=== PATIENT | female | born 1980 | race American Indian/Alaskan Native ===

== ENCOUNTER 2017-01-25 09:08 | Outpatient (CLI) | payer OTHER ==
--- NOTE | 2017-01-25 10:35 | Fluoroscopy Report ---
UPPER GI SERIES HISTORY: Gastroesophageal reflux disease, abdominal pain. COMPARISON: None at this facility. FINDINGS: [employer] Bilingual film of the abdomen demonstrates a LAP band device in the left upper quadrant. The position of the lap band appears abnormal. Deglutition is normal. No aspiration. The esophagus is dilated and demonstrates poor emptying throughout this exam. Occasional esophageal spasm was witnessed. Occasional episodes of gastroesophageal reflux were also witnessed. Slippage of the LAP band device is suspected. Oral contrast does pass through the LAP band although it appears slightly delayed. There is no evidence for gastric ulceration. The duodenal bulb and duodenal sweep are within normal limits. IMPRESSION: Slippage of the lap band is suspected, see above.
== END 2017-01-25 09:09 | disposition home or self-care (01) ==
LOC: FLUORO 09:08
PROVIDERS: ATTEND Specialist
DX: K21.9 Gastro-esophageal reflux disease without esophagitis (principal)
CPT/HCPCS: 74241